=== PATIENT | male | born 1990 | race Caucasian/White ===

== ENCOUNTER 2017-01-09 14:58 | Inpatient (IN) | payer BC ==
[2017-01-09 17:47] VITALS: BMI 22.1
--- NOTE | 2017-01-09 18:59 | HP ---
CIWA Score - CIWA Score Nausea/Vomitin-Mild Nausea/No Vomiting Muscle Tremors: 4-Moderate,w/Arms Extend Anxiety: 4-Mod. Anxious/Guarded Agitation: 4-Moderately Restless Paroxysmal Sweats: 1-Minimal Palms Moist Orientation: 0-Oriented Tacttile Disturbances: 0-None Auditory Disturbances: 0-None Visual Disturbances: 0-None Headache: 0-None Present CIWA-Ar Total Score: 14 Admission ROS S - HPI Chief Complaint: WITHDRAWAL SX Allergies/Adverse Reactions: Allergies Allergy/AdvReac Type Severity Reaction Status Date / Time No Known Allergies Allergy Verified 05/20/16 16:40 History of Present Illness: 26 YEARS OLD MALE WITH LONG HISTORY OF VALIUM, XANAX, KLONOPIN NICOTINE DEPENDENCE HAS SEIZURE 2016 HAS ANXIETY IS ADMITTED TO DETOX Exam Limitations: No Limitations - Ebola screening Have you traveled outside of the country in the last 21 days: No Have you had contact with anyone from an Ebola affected area: No Have you been sick,other than usual withdrawal symptoms: No Do you have a fever: No - Review of Systems Constitutional: Chills, Loss of Appetite, Changes in sleep, Unintentional Wgt. Loss, Unexplained wgt Loss EENT: reports: No Symptoms Reported Respiratory: reports: No Symptoms reported Cardiac: reports: No Symptoms Reported GI: reports: Nausea, Poor Appetite, Poor Fluid Intake, Abdominal cramping : reports: No Symptoms Reported Musculoskeletal: reports: No Symptoms Reported Integumentary: reports: No Symptoms Reported Neuro: reports: Seizure (2016 BENZO WITHDRAWAL RELATED), Tremors Endocrine: reports: No Symptoms Reported Hematology: reports: No Symptoms Reported Psychiatric: reports: Judgement Intact, Orientated x3, Anxious Other Systems: Reviewed and Negative Patient History - Patient Medical History Hx Anemia: No Hx Asthma: No Hx Chronic Obstructive Pulmonary Disease (COPD): No Hx Cancer: No Hx Cardiac Disorders: No Hx Congestive Heart Failure: No Hx Hypertension: No Hx Hypercholesterolemia: No Hx Pacemaker: No HX Cerebrovascular Accident: No Hx Seizures: Yes (drug related-last episode was a year ago) Hx Dementia: No Hx Diabetes: No Hx Gastrointestinal Disorders: No Hx Liver Disease: No Hx Genitourinary Disorders: No Hx Sexually Transmitted Disorders: No Hx Renal Disease (ESRD): No Hx Thyroid Disease: No Hx Human Immunodeficiency Virus (HIV): No (negative) Hx Hepatitis C: No Hx Depression: Yes Hx Suicide Attempt: No Hx Bipolar Disorder: No Hx Schizophrenia: No - Patient Surgical History Past Surgical History: No Hx Neurologic Surgery: No Hx Cataract Extraction: No Hx Cardiac Surgery: No Hx Lung Surgery: No Hx Breast Surgery: No Hx Breast Biopsy: No Hx Abdominal Surgery: No Hx Appendectomy: No Hx Cholecystectomy: No Hx Genitourinary Surgery: No Hx Orthopedic Surgery: No - PPD History Previous Implant?: Yes Documented Results: Negative w/o proof Implanted On Prior [facility] Admission?: Yes Date: 05/22/16 PPD to be Administered?: No - Smoking Cessation Smoking history: Current every day smoker Have you smoked in the past 12 months: Yes Aproximately how many cigarettes per day: 10 Cigars Per Day: 0 Hx Chewing Tobacco Use: No Initiated information on smoking cessation: Yes 'Breaking Loose' booklet given: 01/09/17 - Substance & Tx. History Hx Alcohol Use: Yes Hx Substance Use: Yes Substance Use Type: Alcohol, Tranquilizers Hx Substance Use Treatment: Yes - Substances Abused Alcohol Route: Oral Frequency: Daily Amount used: 1/2 PINT SCOTCH Age of first use: 19 Date of Last Use: 01/08/17 Alprazolam (Xanax) Route: Oral Frequency: Daily Amount used: 4 MG Age of first use: 20 Date of Last Use: 01/09/17 Benzodiazepine (Klonopin) Route: Oral Frequency: Daily Amount used: 2 MG Age of first use: 17 Date of Last Use: 01/09/17 Family Disease History - Family Disease History Family History: Unremarkable Admission Physical Exam S - Vital Signs Vital Signs: Vital Signs - 24 hr 01/09/17 17:45 Temperature 97.3 F L Pulse Rate 73 Respiratory 18 Rate Blood Pressure 127/82 - Physical General Appearance: Yes: Appropriately Dressed, Mild Distress, Thin, Tremorous, Irritable, Sweating, Anxious HEENTM: Yes: Hearing grossly Normal, Normal ENT Inspection, Normocephalic, Normal Voice Respiratory: Yes: Chest Non-Tender, Lungs Clear, Normal Breath Sounds, No Respiratory Distress, No Accessory Muscle Use Neck: Yes: Supple, Trachea in good position Breast: Yes: Breasts Symetrical Cardiology: Yes: Regular Rhythm, Regular Rate, S1, S2 Abdominal: Yes: Non Tender, Soft Genitourinary: Yes: Within Normal Limits Back: Yes: Normal Inspection Musculoskeletal: Yes: full range of Motion, Gait Steady Extremities: Yes: Normal Inspection, Normal Range of Motion, Non-Tender, Tremors Neurological: Yes: Fully Oriented, Alert, Motor Strength 5/5, Normal Response, Depressed Affect Integumentary: Yes: Warm Lymphatic: Yes: Within Normal Limits - Diagnostic (1) Methadone maintenance therapy patient Current Visit: Yes Status: Chronic Comment: received 190mg methadone today; pending verification (2) Nicotine dependence Current Visit: Yes Status: Acute Qualifiers: Nicotine product type: cigarettes Substance use status: in withdrawal Qualified Code(s): F17.213 - Nicotine dependence, cigarettes, with withdrawal (3) Sedative, hypnotic or anxiolytic dependence with withdrawal, uncomplicated Current Visit: Yes Status: Acute (4) Alcohol dependence with uncomplicated withdrawal Current Visit: Yes Status: Acute (5) Weight loss Current Visit: Yes Status: Acute (6) Panic attack Current Visit: Yes Status: Suspected Cleared for Admission [facility] - Detox or Rehab [facility] Level of Care: Medically Managed Detox Regimen/Protocol: Valium [facility] Breath Alcohol Content Breath Alcohol Content: 0 Urine Drug Screen - Results Drug Screen Negative: No Urine Drug Screen Results: THC-Marijuana, DELMAR-Cocaine, BZO-Benzodiazepines, MTD- Methadone
[2017-01-09] MEDS ORDERED: LOPERAMIDE HCL 2 MG CAPSULE PO PRN (19:02)
[2017-01-09] MEDS ORDERED: P-EPHED 60MG/TRIPROLIDI 2.5MG TABLET PO PRN (19:02)
[2017-01-09] MEDS ORDERED: guaiFENesin/D-METHORPHAN HB 10 ML UNIT-DOSE CUPS PO PRN (19:02)
[2017-01-09] MEDS ORDERED: MAGNESIUM HYDROX 2400MG/30ML ORAL SUSPENSION 30 ML CUP PO PRN (19:02)
[2017-01-09] MEDS ORDERED: MAG HYDROX/AL HYDROX/SIMETH 30 ML UNIT-DOSE CUP PO PRN (19:02)
[2017-01-09] MEDS ORDERED: diazePAM 5 MG TABLET PO ONE (19:02)
[2017-01-09] MEDS ORDERED: ACETAMINOPHEN 325 MG TABLET (FP) PO PRN (19:02)
[2017-01-09] MEDS ORDERED: diphenhydrAMINE HCL 50 MG CAPSULE PO PRN (19:02)
[2017-01-09] MEDS ORDERED: IBUPROFEN 400 MG TABLET (FP) PO PRN (19:02)
[2017-01-09] MEDS ORDERED: MENTHOL/PHENOL 1 EACH UD MM PRN (19:02)
[2017-01-09] MEDS ORDERED: MAGNESIUM CITRATE 300 ML BOTTLE PO PRN (19:02)
[2017-01-09] MEDS ORDERED: NICOTINE 14 MG/24 HOURS TOPICAL PATCH TD PRN (19:02)
[2017-01-09] MEDS: diazePAM 5 MG TABLET PO SCH (22:37)
[2017-01-09] MEDS: THIAMINE HCL 100 MG TABLET (FP) PO SCH (22:37)
[2017-01-09] MEDS: NICOTINE POLACRILEX 2 MG GUM BC PRN (22:39)
[2017-01-10 00:12] LABS: URINE APPEARANCE CLEAR; URINE BILIRUBIN NEGATIVE (NEGATIVE); URINE BLOOD NEGATIVE (NEGATIVE); URINE COLOR LTYELLOW; URINE GLUCOSE (UA) NEGATIVE (NEGATIVE); URINE KETONE NEGATIVE (NEGATIVE); URINE LEUK ESTERASE NEGATIVE (NEGATIVE); URINE NITRITE NEGATIVE (NEGATIVE); URINE PROTEIN NEGATIVE (NEGATIVE); URINE UROBILINOGEN NEGATIVE E.U./dl (0.2-1.0)
[2017-01-10] MEDS: diazePAM 5 MG TABLET PO SCH ×3 (05:07→22:09)
[2017-01-10] MEDS: NICOTINE POLACRILEX 2 MG GUM BC PRN ×6 (05:17→22:09)
[2017-01-10] MEDS ORDERED: METHADONE HCL 10 MG TABLET PO ONE (08:37)
[2017-01-10] MEDS ORDERED: METHADONE HCL 10 MG TABLET ONE (09:02)
[2017-01-10] MEDS ORDERED: METHADONE HCL 40 MG DISPERSABLE TABLET ONE (09:02)
[2017-01-10 10:02] LABS: ALBUMIN 4.2 g/dl (3.4-5.0); ANION GAP 7 (8-16); CALCIUM 9.4 mg/dL (8.5-10.1); CO2 33 mmol/L (21-32); GLUCOSE,RANDOM 80 mg/dL (74-106)
[2017-01-10 10:05] LABS: ALK PHOS 46 U/L (45-117); BILIRUBIN,TOTAL 0.2 mg/dL (0.2-1.0); COCKROFT - GAULT 133.47; CREATININE 0.8 mg/dL (0.7-1.3); MCH 28.9 pg (25.7-33.7); MCHC 33.4 g/dl (32.0-35.9); MEAN CELL VOLUME 86.7 fl (80-96); MEAN PLT VOLUME 8.5 fl (7.5-11.1); PLATELET COUNT 230 K/MM3 (134-434); RDW 13.4 % (11.9-15.9); SGOT/AST 16 U/L (15-37); SGPT/ALT 22 U/L (12-78); TOT PROT 6.9 g/dl (6.4-8.2); WHITE BLOOD COUNT 6.5 K/mm3 (4.0-10.0)
[2017-01-10] MEDS: ASPIRIN 81 MG CHEWABLE TABLETS PO SCH ×2 (10:36→10:43)
[2017-01-10] MEDS: PRENATAL VITAMINS W/ FOLIC ACID TABLET (FP) PO SCH ×2 (10:36→10:42)
[2017-01-10] MEDS: METHADONE 160 MG, METHADONE 30 MG PO ONE ×2 (10:37→10:43)
[2017-01-10] MEDS: diazePAM 5 MG TABLET PO PRN ×2 (10:45→17:28)
--- NOTE | 2017-01-10 11:05 | PN ---
S CIWA - CIWA Score Nausea/Vomitin-No Nausea/No Vomiting Muscle Tremors: 4-Moderate,w/Arms Extend Anxiety: 3 Agitation: 4-Moderately Restless Paroxysmal Sweats: 3 Orientation: 0-Oriented Tacttile Disturbances: 0-None Auditory Disturbances: 0-None Visual Disturbances: 0-None Headache: 0-None Present CIWA-Ar Total Score: 14 BHS Progress Note (SOAP) Subjective: sweats shakes interrupted sleep irritable Objective: 01/10/17 11:04 Vital Signs Temperature 96.8 F L 01/10/17 10:59 Pulse Rate 80 01/10/17 10:59 Respiratory Rate 20 01/10/17 10:59 Blood Pressure 108/69 01/10/17 10:59 O2 Sat by Pulse Oximetry (%) Laboratory Tests 01/09/17 01/10/17 01/10/17 21:46 07:00 07:00 WBC 6.5 D RBC 4.98 Hgb 14.4 D Hct 43.1 MCV 86.7 MCHC 33.4 RDW 13.4 Plt Count 230 MPV 8.5 Sodium 141 Potassium 4.5 Chloride 101 Carbon Dioxide 33 H Anion Gap 7 L BUN 10 Creatinine 0.8 Creat Clearance w eGFR > 60 Random Glucose 80 Calcium 9.4 Total Bilirubin 0.2 D AST 16 D ALT 22 D Alkaline Phosphatase 46 Total Protein 6.9 Albumin 4.2 Urine Color Ltyellow Urine Appearance Clear Urine pH 7.0 Ur Specific [place] 1.015 Urine Protein Negative Urine Glucose (UA) Negative Urine Ketones Negative Urine Blood Negative Urine Nitrite Negative Urine Bilirubin Negative Urine Urobilinogen Negative Ur Leukocyte Esterase Negative awake/alert ambulating no acute distress Assessment: 01/10/17 11:05 withdrawal sx Plan: continue detox increase fluids
--- NOTE | 2017-01-10 15:07 | EKG ---
Test Reason : Blood Pressure : / mmHG Vent. Rate : 063 BPM Atrial Rate : 063 BPM P-R Int : 164 ms QRS Dur : 088 ms QT Int : 446 ms P-R-T Axes : 041 040 067 degrees QTc Int : 456 ms NORMAL SINUS RHYTHM WITH SINUS ARRHYTHMIA NORMAL ECG WHEN COMPARED WITH ECG OF 09-JAN-2017 19:58, NO SIGNIFICANT CHANGE WAS FOUND Confirmed by CURTIS MANN MD ([id number]) on 01/10/2017 3:06:52 PM Referred By: Confirmed By:CURTIS MANN MD
--- NOTE | 2017-01-10 15:07 | EKG ---
Test Reason : Blood Pressure : / mmHG Vent. Rate : 060 BPM Atrial Rate : 060 BPM P-R Int : 164 ms QRS Dur : 094 ms QT Int : 480 ms P-R-T Axes : 047 044 060 degrees QTc Int : 480 ms NORMAL SINUS RHYTHM WITH SINUS ARRHYTHMIA PROLONGED QT ABNORMAL ECG NO PREVIOUS ECGS AVAILABLE Confirmed by MACKENZIE PALAFOX, CURTIS ([id number]) on 01/10/2017 3:07:10 PM Referred By: Confirmed By:CURTIS MANN MD
--- NOTE | 2017-01-10 16:24 | CONSULT ---
[facility] Psychiatric Consult - Data Date of interview: 01/10/17 Admission source: [facility] Identifying data: Readmission to [facility] for this 26 y/o [place]born male seeking detox treatment,on ,for alcohol,benzodiazepines (xanax,klonopin), marijuana and cocaine dependence.Patient is single without children,domiciled ( lives with parents),unemployed and dependent on his relatives for financial assistance. Substance Abuse History: - Smoking Cessation. Smoking history: Current every day smoker. Have you smoked in the past 12 months: Yes. Aproximately how many cigarettes per day: 10. Cigars Per Day: 0. Hx Chewing Tobacco Use: No. Initiated information on smoking cessation: Yes. 'Breaking Loose' booklet given : 01/09/17. - Substance & Tx. History. Hx Alcohol Use: Yes. Hx Substance Use : Yes. Substance Use Type: Alcohol, Tranquilizers. Hx Substance Use Treatment : Yes. - Substances Abused. Alcohol. Route: Oral. Frequency: Daily. Amount used: 1/2 PINT SCOTCH. Age of first use: 19. Date of Last Use: . Alprazolam (Xanax). Route: Oral. Frequency: Daily. Amount used: 4 MG. Age of first use: 20. Date of Last Use: 01/09/17. Benzodiazepine ( Klonopin). Route: Oral. Frequency: Daily. Amount used: 2 MG. Age of first use: 17. Date of Last Use: 01/09/17. Confirmed by patient. Medical History: Good general health at this time.Past history of withdrawal seizures (2016). Psychiatric History: Diagnosed with ELLIOT.Patient reports that he is currently under the care of a [facility] psychiatrist in [facility].Prescribed lexapro and klonopin.No history of psychiatric hospitalizations.Mr Whiteside denies past history of suicide attempts.Noted current status of methadone maintenance (190 mg/day). Physical/Sexual Abuse/Trauma History: Patient denies. Additional Comment: Urine Drug Screen Results: THC-Marijuana, DELMAR-Cocaine, BZO- Benzodiazepines, MTD-Methadone.Noted. Mental Status Exam - Mental Status Exam Alert and Oriented to: Time, Place, Person Cognitive Function: Good Patient Appearance: Well Groomed Mood: Nervous, Withdrawn, Anxious Affect: Mood Congruent Patient Behavior: Fatigued, Appropriate, Cooperative (friendly) Speech Pattern: Clear, Appropriate Voice Loudness: Normal Thought Process: Goal Oriented Thought Disorder: Not Present Hallucinations: Denies Suicidal Ideation: Denies Homicidal Ideation: Denies Insight/Judgement: Poor Sleep: Poorly, Difficulty falling asleep (wants zolpidem ) Appetite: Good Muscle strength/Tone: Normal Gait/Station: Normal Psychiatric Findings - Problem List ([place] 1, 2,3) (1) Opioid dependence on agonist therapy Current Visit: Yes Status: Acute (2) Alcohol dependence Current Visit: Yes Status: Acute (3) Sedative, hypnotic or anxiolytic dependence with withdrawal, uncomplicated Current Visit: Yes Status: Acute (4) Marijuana dependence Current Visit: Yes Status: Acute (5) Cocaine dependence Current Visit: Yes Status: Acute (6) Nicotine dependence Current Visit: Yes Status: Acute Qualifiers: Nicotine product type: cigarettes Substance use status: in withdrawal Qualified Code(s): F17.213 - Nicotine dependence, cigarettes, with withdrawal (7) Substance induced mood disorder Current Visit: Yes Status: Acute (8) ELLIOT (generalized anxiety disorder) Current Visit: Yes Status: Chronic Comment: History. (9) Insomnia Current Visit: Yes Status: Acute - Initial Treatment Plan Initial Treatment Plan: Psychoeducation.Detoxification.Medications : lexapro 10 mg po daily + ambien 5 mg po hs.Patient is made aware of potential for parasomnias (ambien) and sexual dysfunction,cardiac adverse events,suicidal ideation (lexapro).History of good tolerability to both medications : reported by patient.Consnt (verbal) granted.Observation.Medications verified through survey of pharmacy claims (noted scripts for lexapro and clonazepam on 12/16/16 @ [facility]).NO scripts needed at discharge.
[2017-01-10] MEDS: ZOLPIDEM TARTRATE 5 MG TABLET PO PRN (22:09)
[2017-01-10] MEDS: THIAMINE HCL 100 MG TABLET (FP) PO SCH (22:09)
[2017-01-11] MEDS: diazePAM 5 MG TABLET PO PRN ×4 (02:22→17:47)
[2017-01-11] MEDS ORDERED: METHADONE HCL 40 MG DISPERSABLE TABLET ONE (04:55)
[2017-01-11] MEDS ORDERED: METHADONE HCL 10 MG TABLET ONE (04:57)
[2017-01-11] MEDS: METHADONE 160 MG, METHADONE 30 MG PO SCH (05:22)
[2017-01-11] MEDS: NICOTINE POLACRILEX 2 MG GUM BC PRN ×5 (05:25→23:01)
[2017-01-11] MEDS ORDERED: METHADONE HCL 40 MG DISPERSABLE TABLET PO SCH (06:00)
--- NOTE | 2017-01-11 09:47 | PN ---
S CIWA - CIWA Score Nausea/Vomitin-No Nausea/No Vomiting Muscle Tremors: 4-Moderate,w/Arms Extend Anxiety: 3 Agitation: 4-Moderately Restless Paroxysmal Sweats: 3 Orientation: 0-Oriented Tacttile Disturbances: 0-None Auditory Disturbances: 0-None Visual Disturbances: 0-None Headache: 0-None Present CIWA-Ar Total Score: 14 BHS Progress Note (SOAP) Subjective: agitation sweats feeling better Objective: 01/11/17 09:42 Vital Signs Temperature 97.5 F L 01/11/17 06:00 Pulse Rate 75 01/11/17 06:00 Respiratory Rate 16 01/11/17 06:00 Blood Pressure 114/61 01/11/17 06:00 O2 Sat by Pulse Oximetry (%) Laboratory Tests 01/09/17 01/10/17 01/10/17 21:46 07:00 07:00 WBC 6.5 D RBC 4.98 Hgb 14.4 D Hct 43.1 MCV 86.7 MCHC 33.4 RDW 13.4 Plt Count 230 MPV 8.5 Sodium 141 Potassium 4.5 Chloride 101 Carbon Dioxide 33 H Anion Gap 7 L BUN 10 Creatinine 0.8 Creat Clearance w eGFR > 60 Random Glucose 80 Calcium 9.4 Total Bilirubin 0.2 D AST 16 D ALT 22 D Alkaline Phosphatase 46 Total Protein 6.9 Albumin 4.2 Urine Color Ltyellow Urine Appearance Clear Urine pH 7.0 Ur Specific [place] 1.015 Urine Protein Negative Urine Glucose (UA) Negative Urine Ketones Negative Urine Blood Negative Urine Nitrite Negative Urine Bilirubin Negative Urine Urobilinogen Negative Ur Leukocyte Esterase Negative RPR Titer 01/10/17 07:00 WBC RBC Hgb Hct MCV MCHC RDW Plt Count MPV Sodium Potassium Chloride Carbon Dioxide Anion Gap BUN Creatinine Creat Clearance w eGFR Random Glucose Calcium Total Bilirubin AST ALT Alkaline Phosphatase Total Protein Albumin Urine Color Urine Appearance Urine pH Ur Specific [place] Urine Protein Urine Glucose (UA) Urine Ketones Urine Blood Urine Nitrite Urine Bilirubin Urine Urobilinogen Ur Leukocyte Esterase RPR Titer Nonreactive awake/alert ambulating no acute distress Assessment: 01/11/17 09:45 withdrawal sx Plan: continue detox increase fluids
[2017-01-11] MEDS: diazePAM 5 MG TABLET PO SCH ×2 (10:07→22:59)
[2017-01-11] MEDS: PRENATAL VITAMINS W/ FOLIC ACID TABLET (FP) PO SCH (10:07)
[2017-01-11] MEDS: ASPIRIN 81 MG CHEWABLE TABLETS PO SCH (10:07)
[2017-01-11] MEDS: ESCITALOPRAM OXALATE 10 MG TABLET (FP) PO SCH (10:07)
[2017-01-11] MEDS: ZOLPIDEM TARTRATE 5 MG TABLET PO PRN (22:59)
[2017-01-11] MEDS: THIAMINE HCL 100 MG TABLET (FP) PO SCH (22:59)
[2017-01-12] MEDS: diazePAM 5 MG TABLET PO PRN ×4 (03:42→18:41)
[2017-01-12] MEDS ORDERED: METHADONE HCL 10 MG TABLET ONE (04:47)
[2017-01-12] MEDS ORDERED: METHADONE HCL 40 MG DISPERSABLE TABLET ONE (04:47)
[2017-01-12] MEDS: METHADONE 160 MG, METHADONE 30 MG PO SCH (05:25)
[2017-01-12] MEDS: NICOTINE POLACRILEX 2 MG GUM BC PRN ×4 (08:08→20:47)
--- NOTE | 2017-01-12 10:10 | PN ---
BHS Progress Note (SOAP) Subjective: sweats agitation Objective: 01/12/17 10:09 Vital Signs Temperature 97.5 F L 01/12/17 07:10 Pulse Rate 77 01/12/17 07:10 Respiratory Rate 18 01/12/17 07:10 Blood Pressure 125/70 01/12/17 07:10 O2 Sat by Pulse Oximetry (%) awake/alert ambulating no acute distress Assessment: 01/12/17 10:10 withdrawal sx Plan: continue detox increase fluids d/c in am
[2017-01-12] MEDS: PRENATAL VITAMINS W/ FOLIC ACID TABLET (FP) PO SCH (10:23)
[2017-01-12] MEDS: ASPIRIN 81 MG CHEWABLE TABLETS PO SCH (10:23)
[2017-01-12] MEDS: diazePAM 5 MG TABLET PO SCH ×2 (10:24→22:17)
[2017-01-12] MEDS: ESCITALOPRAM OXALATE 10 MG TABLET (FP) PO SCH (10:24)
[2017-01-12] MEDS: THIAMINE HCL 100 MG TABLET (FP) PO SCH (22:17)
[2017-01-12] MEDS: ZOLPIDEM TARTRATE 5 MG TABLET PO PRN (22:17)
[2017-01-13] MEDS ORDERED: METHADONE HCL 40 MG DISPERSABLE TABLET ONE (05:01)
[2017-01-13] MEDS ORDERED: METHADONE HCL 10 MG TABLET ONE (05:02)
[2017-01-13] MEDS: METHADONE 160 MG, METHADONE 30 MG PO SCH (05:28)
[2017-01-13 06:38] VITALS: BP 115/57; PULSE 76; TEMP 97.5
[2017-01-13] MEDS: NICOTINE POLACRILEX 2 MG GUM BC PRN (06:59)
--- NOTE | 2017-01-13 08:33 | DS ---
[facility] Detox Discharge Summary Admission Date: 01/09/17 Discharge Date: 01/13/17 - History Present History: Alcohol Dependence, Cannabis Dependence, Cocaine Dependence, Opioid Dependence, Sedative Dependence, MMTP - Physical Exam Results Vital Signs: Vital Signs Temperature 97.5 F L 01/13/17 06:00 Pulse Rate 76 01/13/17 06:00 Respiratory Rate 16 01/13/17 06:00 Blood Pressure 115/57 01/13/17 06:00 O2 Sat by Pulse Oximetry (%) - Treatment Hospital Course: Detox Protocol Followed, Detoxed Safely, Responded well, Discharged Condition Good, Rehab Referral Accepted - Medication Discharge Medications: Ambulatory Orders NK [No Known Home Medication] 01/09/17 - Diagnosis (1) Alcohol dependence with uncomplicated withdrawal Current Visit: Yes Status: Chronic (2) Cocaine dependence Current Visit: Yes Status: Chronic Qualifiers: Substance use status: uncomplicated Qualified Code(s): F14.20 - Cocaine dependence, uncomplicated (3) Insomnia Current Visit: Yes Status: Acute (4) Marijuana dependence Current Visit: Yes Status: Acute (5) Nicotine dependence Current Visit: Yes Status: Chronic Qualifiers: Nicotine product type: cigarettes Substance use status: uncomplicated Qualified Code(s): F17.210 - Nicotine dependence, cigarettes, uncomplicated (6) Opioid dependence on agonist therapy Current Visit: Yes Status: Acute (7) Sedative, hypnotic or anxiolytic dependence with withdrawal, uncomplicated Current Visit: Yes Status: Chronic (8) Substance induced mood disorder Current Visit: Yes Status: Acute (9) Weight loss Current Visit: Yes Status: Acute (10) ELLIOT (generalized anxiety disorder) Current Visit: Yes Status: Chronic (11) Methadone maintenance therapy patient Current Visit: Yes Status: Chronic (12) Panic attack Current Visit: Yes Status: Suspected (13) Sedative/hypnotic withdrawal without complication Current Visit: Yes Status: Chronic - AMA Did Patient Leave Against Medical Advice: No
[2017-01-13] MEDS: ASPIRIN 81 MG CHEWABLE TABLETS PO SCH (09:00)
[2017-01-13] MEDS: PRENATAL VITAMINS W/ FOLIC ACID TABLET (FP) PO SCH (09:00)
[2017-01-13] MEDS: ESCITALOPRAM OXALATE 10 MG TABLET (FP) PO SCH (09:00)
[2017-01-13] MEDS ORDERED: diazePAM 5 MG TABLET PO SCH (10:00)
== END 2017-01-13 10:02 | disposition home or self-care (01) | DRG 773 ==
LOC: YASAS 14:58 → Y6N 19:42
PROVIDERS: ADMIT Internal Medicine Addiction Medicine; ATTEND Internal Medicine Addiction Medicine
PROC: HZ2ZZZZ Detoxification Services for Substance Abuse Treatment (ICD-10-PCS; principal; 2017-01-13)
DX: F11.23 Opioid dependence with withdrawal (principal); F13.230 Sedative, hypnotic or anxiolytic dependence with withdrawal, uncomplicated; F10.230 Alcohol dependence with withdrawal, uncomplicated; F14.20 Cocaine dependence, uncomplicated; F12.20 Cannabis dependence, uncomplicated; F17.210 Nicotine dependence, cigarettes, uncomplicated; F19.24 Other psychoactive substance dependence with psychoactive substance-induced mood disorder; F41.1 Generalized anxiety disorder; F41.0 Panic disorder [episodic paroxysmal anxiety]; G47.00 Insomnia, unspecified; R63.4 Abnormal weight loss; Z68.22 Body mass index [BMI] 22.0-22.9, adult
CPT/HCPCS: 36415; 80053; 81003; 85027; 86593; 93005; 93010

== ENCOUNTER 2022-05-27 09:41 | Inpatient (IN) | payer OTHER ==
[2022-05-27 10:12] VITALS: BMI 18.6
[2022-05-27] MEDS ORDERED: MAG HYDROX/AL HYDROX/SIMETH 30 ML UNIT-DOSE CUP PO PRN (11:50)
[2022-05-27] MEDS ORDERED: IBUPROFEN 400 MG TABLET (FP) PO PRN (11:50)
[2022-05-27] MEDS ORDERED: IBUPROFEN 600 MG TABLET (FP) PO PRN (11:50)
[2022-05-27] MEDS ORDERED: MAGNESIUM HYDROX 2400MG/30ML ORAL SUSPENSION 30 ML CUP PO PRN (11:50)
[2022-05-27] MEDS ORDERED: ACETAMINOPHEN 325 MG TABLET (FP) PO PRN (11:50)
[2022-05-27] MEDS ORDERED: ONDANSETRON *ODT* 4 MG TABLET SL PRN (11:50)
[2022-05-27] MEDS ORDERED: LOPERAMIDE HCL 2 MG CAPSULE PO PRN (11:50)
[2022-05-27] MEDS ORDERED: BENZOCAINE/MENTHOL (CHLORASEPTIC ) LOZENGE MM PRN (11:50)
[2022-05-27] MEDS ORDERED: DICYCLOMINE HCL 10 MG CAPSULE PO PRN (11:50)
[2022-05-27] MEDS ORDERED: NALOXONE HCL (KLOXXADO) 8 MG SPRAY NS PRN (11:50)
[2022-05-27] MEDS ORDERED: BISMUTH SUBSALICYLATE 262 MG/15 ML BTL PO PRN (11:50)
[2022-05-27] MEDS ORDERED: MAGNESIUM CITRATE 300 ML BOTTLE PO PRN (11:50)
[2022-05-27] MEDS ORDERED: methaDONE HCL 10 MG TABLET (FOR DETOX USE ONLY) PO ONE (11:50)
[2022-05-27] MEDS: diazePAM 5 MG TABLET PO PRN (12:14)
[2022-05-27] MEDS: PRENATAL VITAMINS W/ FOLIC ACID TABLET (FP) PO SCH (12:29)
[2022-05-27] MEDS: METHOCARBAMOL 500 MG TABLET PO PRN (12:39)
[2022-05-27] MEDS: hydrOXYzine PAMOATE 25 MG CAPSULE (FP) PO SCH ×3 (14:01→22:19)
[2022-05-27] MEDS: NICOTINE 10 MG CARTRIDGE (INHALER) IH PRN ×2 (14:02→18:07)
[2022-05-27] MEDS: ACETAMINOPHEN 325 MG TABLET (FP) PO PRN (15:05)
[2022-05-27] MEDS: cloNIDine HCL 0.1 MG TABLET PO PRN (15:11)
[2022-05-27 15:35] LABS: HEMOGLOBIN 15.7 GM/dL (11.7-16.9); MCH 30.2 pg (25.7-33.7); MCHC 34.2 g/dl (32.0-35.9); MEAN CELL VOLUME 88.4 fl (80-96); MEAN PLT VOLUME 8.8 fl (7.5-11.1); PLATELET COUNT 277 10^3/uL (134-434); RDW 13.5 % (11.9-15.9); WHITE BLOOD COUNT 8.8 K/mm3 (4.0-10.0)
[2022-05-27 15:47] LABS: ALBUMIN 4.4 g/dl (3.4-5.0); BLOOD UREA NITROGEN 12.3 mg/dL (7-18); CALCIUM 9.9 mg/dL (8.5-10.1)
[2022-05-27 15:50] LABS: CREATININE 0.8 mg/dL (0.55-1.3)
[2022-05-27 15:52] LABS: BILIRUBIN,TOTAL 0.8 mg/dL (0.2-1); TOT PROT 7.3 g/dl (6.4-8.2)
[2022-05-27] MEDS: diazePAM 5 MG TABLET PO SCH ×2 (18:05→22:19)
[2022-05-27] MEDS: busPIRone HCL 10 MG TABLET (FP) PO SCH (22:19)
[2022-05-27] MEDS: THIAMINE HCL 100 MG TABLET (FP) PO SCH (22:19)
[2022-05-27] MEDS: GABAPENTIN 100 MG CAPSULE PO SCH (22:19)
[2022-05-27] MEDS: MELATONIN 5 MG TABLETS PO SCH (22:19)
[2022-05-27] MEDS: NICOTINE POLACRILEX 2 MG GUM BUC PRN (22:22)
[2022-05-28] MEDS: hydrOXYzine PAMOATE 25 MG CAPSULE (FP) PO SCH ×5 (06:02→22:08)
[2022-05-28] MEDS: GABAPENTIN 100 MG CAPSULE PO SCH ×3 (06:02→22:06)
[2022-05-28] MEDS: diazePAM 5 MG TABLET PO SCH ×4 (06:02→22:07)
[2022-05-28] MEDS: ESCITALOPRAM OXALATE 10 MG TABLET PO SCH (09:36)
[2022-05-28] MEDS: PRENATAL VITAMINS W/ FOLIC ACID TABLET (FP) PO SCH (09:36)
[2022-05-28] MEDS: busPIRone HCL 10 MG TABLET (FP) PO SCH ×2 (09:36→22:07)
[2022-05-28] MEDS: METHOCARBAMOL 500 MG TABLET PO PRN ×2 (09:37→22:10)
[2022-05-28] MEDS: NICOTINE POLACRILEX 2 MG GUM BUC PRN ×3 (11:59→21:37)
[2022-05-28] MEDS: diazePAM 5 MG TABLET PO PRN (15:04)
[2022-05-28] MEDS: ACETAMINOPHEN 325 MG TABLET (FP) PO PRN (16:05)
[2022-05-28] MEDS: MELATONIN 5 MG TABLETS PO SCH (22:08)
[2022-05-28] MEDS: THIAMINE HCL 100 MG TABLET (FP) PO SCH (22:08)
[2022-05-29] MEDS: GABAPENTIN 100 MG CAPSULE PO SCH ×3 (05:25→22:24)
[2022-05-29] MEDS: diazePAM 5 MG TABLET PO SCH ×3 (05:26→22:24)
[2022-05-29] MEDS: hydrOXYzine PAMOATE 25 MG CAPSULE (FP) PO SCH ×5 (05:26→22:25)
[2022-05-29] MEDS: ESCITALOPRAM OXALATE 10 MG TABLET PO SCH (09:28)
[2022-05-29] MEDS: PRENATAL VITAMINS W/ FOLIC ACID TABLET (FP) PO SCH (09:28)
[2022-05-29] MEDS: busPIRone HCL 10 MG TABLET (FP) PO SCH ×2 (09:28→22:24)
[2022-05-29] MEDS ORDERED: methaDONE HCL 10 MG TABLET (FOR DETOX USE ONLY) PO ONE (10:00)
[2022-05-29] MEDS: diazePAM 5 MG TABLET PO PRN ×2 (10:27→17:47)
[2022-05-29] MEDS: METHOCARBAMOL 500 MG TABLET PO PRN ×2 (10:27→22:26)
[2022-05-29] MEDS: NICOTINE 10 MG CARTRIDGE (INHALER) IH PRN ×2 (10:28→19:07)
[2022-05-29] MEDS: NICOTINE POLACRILEX 2 MG GUM BUC PRN ×2 (13:36→15:52)
[2022-05-29] MEDS: cloNIDine HCL 0.1 MG TABLET PO PRN (19:07)
[2022-05-29] MEDS: MELATONIN 5 MG TABLETS PO SCH (22:24)
[2022-05-29] MEDS: THIAMINE HCL 100 MG TABLET (FP) PO SCH (22:24)
[2022-05-30] MEDS: hydrOXYzine PAMOATE 25 MG CAPSULE (FP) PO SCH ×5 (05:45→23:04)
[2022-05-30] MEDS: diazePAM 5 MG TABLET PO SCH ×2 (05:45→17:42)
[2022-05-30] MEDS: GABAPENTIN 100 MG CAPSULE PO SCH ×3 (05:45→23:05)
[2022-05-30] MEDS: NICOTINE POLACRILEX 2 MG GUM BUC PRN ×5 (05:49→23:07)
[2022-05-30] MEDS: NICOTINE 10 MG CARTRIDGE (INHALER) IH PRN ×3 (08:21→19:25)
[2022-05-30] MEDS: diazePAM 5 MG TABLET PO PRN (09:40)
[2022-05-30] MEDS: busPIRone HCL 10 MG TABLET (FP) PO SCH ×2 (09:41→23:05)
[2022-05-30] MEDS: ESCITALOPRAM OXALATE 10 MG TABLET PO SCH (09:41)
[2022-05-30] MEDS: PRENATAL VITAMINS W/ FOLIC ACID TABLET (FP) PO SCH (09:41)
[2022-05-30] MEDS: METHOCARBAMOL 500 MG TABLET PO PRN ×2 (14:28→23:05)
[2022-05-30] MEDS: THIAMINE HCL 100 MG TABLET (FP) PO SCH (23:04)
[2022-05-30] MEDS: MELATONIN 5 MG TABLETS PO SCH (23:06)
[2022-05-31] MEDS: GABAPENTIN 100 MG CAPSULE PO SCH ×3 (05:52→22:14)
[2022-05-31] MEDS: hydrOXYzine PAMOATE 25 MG CAPSULE (FP) PO SCH ×5 (05:52→22:14)
[2022-05-31] MEDS: METHOCARBAMOL 500 MG TABLET PO PRN ×2 (05:53→18:02)
[2022-05-31] MEDS: NICOTINE 10 MG CARTRIDGE (INHALER) IH PRN ×3 (05:54→17:29)
[2022-05-31] MEDS ORDERED: diazePAM 5 MG TABLET PO ONE (06:00)
[2022-05-31] MEDS ORDERED: methaDONE HCL 10 MG TABLET (FOR DETOX USE ONLY) PO ONE (10:00)
[2022-05-31] MEDS: busPIRone HCL 10 MG TABLET (FP) PO SCH ×2 (10:03→22:14)
[2022-05-31] MEDS: ESCITALOPRAM OXALATE 10 MG TABLET PO SCH (10:03)
[2022-05-31] MEDS: PRENATAL VITAMINS W/ FOLIC ACID TABLET (FP) PO SCH (10:03)
[2022-05-31] MEDS: ACETAMINOPHEN 325 MG TABLET (FP) PO PRN (10:06)
[2022-05-31 13:04] VITALS: RESP 18
[2022-05-31] MEDS: MELATONIN 5 MG TABLETS PO SCH (22:14)
[2022-05-31] MEDS: THIAMINE HCL 100 MG TABLET (FP) PO SCH (22:14)
[2022-06-01] MEDS: GABAPENTIN 100 MG CAPSULE PO SCH (05:52)
[2022-06-01] MEDS: hydrOXYzine PAMOATE 25 MG CAPSULE (FP) PO SCH (05:52)
[2022-06-01 08:47] VITALS: BP 127/74; PULSE 99; TEMP 96.7
== END 2022-06-01 08:57 | disposition home or self-care (01) | DRG 773 ==
LOC: YASAS 09:41 → Y3N 11:31
PROVIDERS: ADMIT Allergy & Immunology; ATTEND Surgery
PROC: HZ2ZZZZ Detoxification Services for Substance Abuse Treatment (ICD-10-PCS; principal; 2022-05-27)
DX: F10.230 Alcohol dependence with withdrawal, uncomplicated (principal); F11.23 Opioid dependence with withdrawal; F13.230 Sedative, hypnotic or anxiolytic dependence with withdrawal, uncomplicated; F14.20 Cocaine dependence, uncomplicated; F15.10 Other stimulant abuse, uncomplicated; F12.20 Cannabis dependence, uncomplicated; F17.210 Nicotine dependence, cigarettes, uncomplicated; F19.280 Other psychoactive substance dependence with psychoactive substance-induced anxiety disorder; F41.1 Generalized anxiety disorder; G47.00 Insomnia, unspecified; I10 Essential (primary) hypertension; R73.9 Hyperglycemia, unspecified; R74.01 Elevation of levels of liver transaminase levels; R63.4 Abnormal weight loss; Z68.1 Body mass index [BMI] 19.9 or less, adult
CPT/HCPCS: 36415; 80053; 85027; 86780; C9803-CS; U0003; U0005